=== PATIENT | female | born 1970 | race Two or more races ===

== ENCOUNTER 2018-05-10 08:24 | Emergency (ER) | payer OTHER ==
[2018-05-10 08:44] VITALS: TEMP 98; BMI 37.8
[2018-05-10] MEDS ORDERED: ACETAMINOPHEN 325 MG TABLET (FP) PO ONE (09:34)
--- NOTE | 2018-05-10 09:34 | PDOC ---
History of Present Illness - General Chief Complaint: Pain, Acute Stated Complaint: ABD PAIN Time Seen by Provider: 05/10/18 09:16 History Source: Patient - History of Present Illness Initial Comments: 05/10/18 09:28 47 year old female with a past medical history of asthma, migraines, kidney stones, breast CA, valvular heart dz (not on meds), presents to the hospital for 2 weeks of constant, non-radiating, right upper quadrant abdominal pain. She states that the pain is burning in quality, 10/10 in severity, and starts in the morning and lasts until bedtime, every day. Reports that she eats spicy foods, but is not aware of food exacerbating her symptoms. Reports an associated headache when she has the abdominal pain. Reports that milk and yogurt help alleviate her pain. Denies fevers, chills, nausea, vomiting, diarrhea, chest pain or shortness of breath. Allergies: none Smoking: none Alcohol: none Drugs: none PCP: Dr. Costello Past History - Past Medical History Allergies/Adverse Reactions: Allergies Allergy/AdvReac Type Severity Reaction Status Date / Time No Known Allergies Allergy Verified 05/10/18 08:41 Home Medications: Ambulatory Orders Albuterol Sulfate Inhaler - [Ventolin HFA Inhaler -] 1 - 2 inh PO Q4H PRN Aspirin [[place] Aspirin] 81 mg PO DAILY 01/03/16 Citalopram Hydrobromide [Celexa -] 20 mg PO HS 01/03/16 Citalopram Hydrobromide [Celexa -] 40 mg PO DAILY 01/03/16 Clonazepam [Klonopin] 1 mg PO DAILY 01/03/16 Diphenhydramine [Benadryl Capsule -] 50 mg PO DAILY PRN 01/03/16 EPINEPHrine (EPIPEN JR 0.15MG) [Epipen Jr 0.15MG] 0.15 mg IM ASDIR 01/03/16 Gabapentin 100 mg PO DAILY 01/03/16 Loratadine [Claritin -] 10 mg PO DAILY 01/03/16 Quetiapine Fumarate [Seroquel -] 100 mg PO HS 01/03/16 Topiramate [Topamax] 50 mg PO DAILY 01/03/16 Acetaminophen/Caffeine/Butalb [Fioricet -] 1 tab PO Q6H PRN 05/10/18 Famotidine [Pepcid] 40 mg PO BID #14 tablet 05/10/18 Hydrochlorothiazide [Hctz -] 50 mg PO DAILY 05/10/18 Mag Hydrox/Aluminum Hyd/Simeth [Maalox Advanced Suspension] 355 ml PO Q6H #1 oral.susp 05/10/18 Meclizine HCl [Antivert -] 12.5 mg PO ASDIR PRN 05/10/18 Montelukast Sodium [Singulair] 10 mg PO HS 05/10/18 Omeprazole 10 mg PO DAILY PRN 05/10/18 Simvastatin [Zocor -] 10 mg PO HS 05/10/18 Tamoxifen Citrate 20 mg PO DAILY 05/10/18 Trazodone HCl 50 mg PO HS 05/10/18 Anemia: Yes Asthma: Yes Cancer: No Cardiac Disorders: Yes (VALVE PROBLEM) CVA: No COPD: No CHF: No Dementia: No Diabetes: No GI Disorders: Yes (ULCER) Disorders: No HTN: Yes Hypercholesterolemia: No Liver Disease: No Psychiatric Problems: Yes (ANXIETY) Seizures: Yes ("HAS NOT HAD FOR MANY YRS") Thyroid Disease: No - Surgical History Abdominal Surgery: No Appendectomy: No Cardiac Surgery: No Cholecystectomy: No Lung Surgery: No Neurologic Surgery: No Orthopedic Surgery: Yes (CARPAL TUNNEL - RIGHT) - Suicide/Smoking/Psychosocial Hx Smoking Status: No Smoking History: Never smoked Number of Cigarettes Smoked Daily: 0 Hx Alcohol Use: No Drug/Substance Use Hx: No Substance Use Type: None Hx Substance Use Treatment: No Review of Systems - Review of Systems Constitutional: No: Chills, Fever Respiratory: No: Shortness of Breath, Wheezing Cardiac (ROS): No: Chest Pain, Chest Tightness ABD/GI: Yes: Other (RUQ abdominal pain). No: Abdominal Distended, Diarrhea, Nausea, Vomiting Musculoskeletal: No: Back Pain, Joint Pain, Muscle Pain, Muscle Weakness *Physical Exam - Vital Signs Last Vital Signs Temp Pulse Resp BP Pulse Ox 98 F 81 19 119/77 98 05/10/18 08:41 05/10/18 08:41 05/10/18 08:41 05/10/18 08:41 05/10/18 08:41 - Physical Exam Comments: 05/10/18 09:32 GENERAL: A&Ox3, no acute distress EYES: PERRLA, EOMI ENT: Moist mucus membranes NECK: No JVD LUNGS: CTA, no wheezes HEART: RRR, no murmurs ABDOMEN: Obese, Soft, tender to palpation in the RUQ, guzman sign positive, BS present MUSCULOSKELETAL: No CVA Tenderness EXTREMITIES: 2+ pulses, no edema. NEUROLOGICAL: Cranial nerves II-XII intact. ED Treatment Course - LABORATORY CBC & Chemistry Diagram: 05/10/18 10:11 05/10/18 10:11 - RADIOLOGY Radiology Studies Ordered: Category Date Time Status ABDOMEN US -LIMITED [US] Stat Ultrasound 05/10/18 09:27 Ordered Medical Decision Making - Medical Decision Making 05/10/18 09:33 47 year old female hx of asthma, migraines, breast CA, kidney stones presented to hospital for 2 weeks of RUQ abdominal pain DDx: cholelithiasis, choledocholithiasis, cholecystitis, gastritis, pancreatitis gastroenteritis, gastric/duodenal ulcer Plan: -CBC, CMP, UA, EKG, Lipase, US abdomen with gallbladder focus -will give tylenol 650 for pain -pepcid -maalox 05/10/18 12:50 -CT abd/pelvis positive for bilateral non-obstructive renal stones without hydro , hyperdensity of gallbladder sludge but no stones, uterine fibroid vs mass -will get transvaginal US 05/10/18 16:51 -TVUS only significant for simple cysts, pt will follow with OB *DC/Admit/Observation/Transfer Diagnosis at time of Disposition: Abdominal pain - Discharge Dispostion Disposition: HOME Condition at time of disposition: Stable Decision to Admit order: No - Prescriptions Prescriptions: Famotidine [Pepcid] 40 mg PO BID #14 tablet Mag Hydrox/Aluminum Hyd/Simeth [Maalox Advanced Suspension] 355 ml PO Q6H #1 oral.susp - Referrals Referrals: Rufino Costello MD [Primary Care Provider] - Rashaun Lozano DO [Staff Physician] - 28 days - Patient Instructions Additional Instructions: You were seen in the hospital for abdominal pain. 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 Lozano within 1 month of discharge Please make an appointment with your primary care physician within 1 week of discharge If these symptoms persist or get worse, or you develop fevers, chills chest pain, or difficulty breathing, please return to the emergency room immediately - Post Discharge Activity
[2018-05-10] MEDS ORDERED: MAG HYDROX/AL HYDROX/SIMETH 30 ML UNIT-DOSE CUP PO ONE (09:51)
[2018-05-10] MEDS ORDERED: FAMOTIDINE 20 MG/50 ML IVPB 20 MG/50 ML MG IVPB ONE ×2 (09:51→10:34)
--- NOTE | 2018-05-10 10:20 | PDOC ---
Attending Attestation - ED Attending Attestation I have performed the following: I have examined & evaluated the patient, The case was reviewed & discussed with the resident, I agree w/resident's findings & plan - Medical Decision Making 05/10/18 10:20 I, Dr. Dee Lara MD, attest that this document has been prepared under my direction and personally reviewed by me in its entirety. I further attest, that it accurately reflects all work, treatment, procedures and medical decision -making performed by me. 05/10/18 10:29 Differential diagnosis includes gastritis, duodenal ulcer or duodenitis, renal colic cholelithiasis or cholecystitis. Plan bedside ultrasound to evaluate the gallbladder and bilateral renal ultrasound Focused ED ultrasound was performed gallbladder was scanned into plans with the phased array probe no wall thickening no wall edema no pericholecystic fluid. Negative sonographic Roldan's. No gallstones visualized CBD was normal impression normal gallbladder Bilateral kidneys were scanned into planes with the phased array probe. Small consultation noted in the right kidney no hydronephrosis visible. Bladder was nondistended there is an incidental 2.4 cm right adnexal cyst patient was informed of this finding impression normal renal ultrasound incidental right adnexal cyst recommend outpatient transvaginal ultrasound follow-up We will perform CT abdomen and pelvis to evaluate for occult ureteral stone <Dee Lara - Last Filed: 05/10/18 10:36> - Resident Resident Name: Haresh Lugo - HPI HPI: 05/10/18 10:21 The patient is a 47 year old female, with a significant past medical history of hypertension, asthma, kidney stones and anemia, who presents to the emergency department with abdominal pain for approximately 2 weeks. The patient reports her pain is localized to the RUQ pain and is burning/nonradiating in nature. Patient reports her pain is a constant 10/10 throughout the day, but it does let her sleep at night. Patient reports her pain is alleviated with milk and yogurt. She denies any associated nausea, vomiting, diarrhea, or constipation. She denies any flank pain, dysuria, hematuria, frequency, or urgency. She denies any fever, chills, headache, or dizziness. Patient reports the only abdominal pain, she has had in the past is related to her kidney stones, but states this pain is not similar to her kidney stone pain. She denies any heavy lifting, recent travel, or sick contacts. Allergies: NKDA Past Surgical History: None reported Social History: Non smoker. No ETOH or recreational drug use. - Physicial Exam PE: 05/10/18 10:21 GENERAL: Awake, alert, and fully oriented, in no acute distress HEAD: No signs of trauma EYES: PERRLA, EOMI, sclera anicteric, conjunctiva clear ENT: Auricles normal inspection, hearing grossly normal, nares patent. Moist mucosa NECK: Normal ROM, supple, no lymphadenopathy, JVD, or masses LUNGS: Breath sounds equal, clear to auscultation bilaterally. No wheezes, and no crackles HEART: Regular rate and rhythm, normal S1 and S2, no murmurs, rubs or gallops ABDOMEN: +RUQ tenderness. Soft, normoactive bowel sounds. No guarding, no rebound. No masses EXTREMITIES: Normal range of motion, no edema. No clubbing or cyanosis. No cords, erythema, or tenderness. DP/PT pulses 2+ and symmetric. Warm and well perfused. NEUROLOGICAL: Moves all extremities. Normal speech, normal gait SKIN: Warm, Dry, normal turgor, no rashes or lesions noted. - Medical Decision Making 05/10/18 10:21 Documentation prepared by Mirtha Velasquez, acting as medical staff coordinator for Dee Lara MD. <Mirtha Velasquez - Last Filed: 05/10/18 17:21> Heart Score/ECG Review #1 General ECG Interpretation: Sinus Rhythm, Normal Rate (61), Normal Intervals, No acute ischemic changes Compared to previous ECG there are: No significant change (TWI III, AVF) <Dee Lara - Last Filed: 05/10/18 10:36> ED Treatment Course - LABORATORY CBC & Chemistry Diagram: 05/10/18 10:11 05/10/18 10:11 - ADDITIONAL ORDERS Additional order review: Laboratory Results 05/10/18 05/10/18 10:11 10:00 Sodium 140 Potassium 4.0 Chloride 107 Carbon Dioxide 27 Anion Gap 6 L BUN 15 Creatinine 0.6 Creat Clearance w eGFR > 60 Random Glucose 109 H Calcium 9.2 Total Bilirubin 0.2 D AST 27 ALT 40 Alkaline Phosphatase 66 Total Protein 7.1 Albumin 3.6 Lipase 161 Urine Color Yellow Urine Appearance Cloudy Urine pH 5.0 D Ur Specific [place] 1.024 Urine Protein Negative Urine Glucose (UA) Negative Urine Ketones Negative Urine Blood Negative Urine Nitrite Negative Urine Bilirubin Negative Urine Urobilinogen Negative Ur Leukocyte Esterase Negative Urine HCG, Qual Negative 05/10/18 10:11 RBC 4.27 D MCV 92.7 MCHC 33.1 RDW 13.9 D MPV 8.6 D Neutrophils % 50.6 Lymphocytes % 40.1 H D Monocytes % 7.0 Eosinophils % 1.8 Basophils % 0.5 - RADIOLOGY Radiograph Interpretation: 05/10/18 17:18 EXAM: CT Abdomen and Pelvis INTERPRETED BY: Dr. Villegas REVIEWED BY: Dr. Lara IMPRESSION: Bilateral small renal calculi without hydronephrosis or definitive ureteral calculi. Possible hyperdensity of bile without calcified stones seen. Correlate with ultrasound. Appendix not seen but no inflammatory changes noted in the right lower quadrant. Hepatomegaly with significant lipomatous infiltration. Enlarged uterus and cervix with possible right adnexal mass versus serosal myoma. Correlate with pelvic ultrasound. Other findings as above. Clinical correlation advised. EXAM: Transvaginal US INTERPRETED BY: Dr. Forbes REVIEWED BY: Dr. Lara IMPRESSION: There is a small amount of fluid within the endometrial cavity. Poor visualization of the endometrial wall without gross thickening. There are couple of right ovarian simple cysts with the largest measuring 2.7 cm. Normal vascular flow, arterial and venous. A couple of left ovarian simple cysts/ dominant follicles with the largest measuring 1.8 cm. No arterial flow could be detected. However, venous flow was detected. Correlate clinically 2 determine further evaluation and follow-up There is no free fluid in the cul-de-sac - Medications Given in the ED: ED Medications Discontinued Medications Generic Name Dose Route Start Last Admin Trade Name Freq PRN Reason Stop Dose Admin Acetaminophen 650 mg 05/10/18 09:34 05/10/18 10:40 Tylenol - PO 05/10/18 09:35 650 mg ONCE ONE Administration Al Hydroxide/Mg Hydroxide 30 ml 05/10/18 09:51 05/10/18 10:40 Mylanta Oral Suspension - PO 05/10/18 09:52 30 ml ONCE ONE Administration Famotidine/Sodium Chloride 20 mg in 50 mls @ 100 mls/hr 05/10/18 09:51 10:40 Pepcid 20 Mg Premixed Ivpb - IVPB 05/10/18 10:20 100 mls/hr ONCE ONE Administration <Mirtha Velasquez - Last Filed: 05/10/18 17:21>
[2018-05-10 10:21] LABS: BASO % 0.5 % (0-2.0); EOS % 1.8 % (0-4.5); HEMATOCRIT 39.6 % (32.4-45.2); HEMOGLOBIN 13.1 GM/dL (10.7-15.3); LYMPH % 40.1 % (8-40); MCH 30.7 pg (25.7-33.7); MCHC 33.1 g/dl (32.0-36.0); MEAN CELL VOLUME 92.7 fl (80-96); MEAN PLT VOLUME 8.6 fl (7.5-11.1); NEUT % 50.6 % (42.8-82.8); PLATELET COUNT 214 K/MM3 (134-434); RBC 4.27 M/mm3 (3.60-5.2); RDW 13.9 % (11.6-15.6); WHITE BLOOD COUNT 6.7 K/mm3 (4.0-10.0)
[2018-05-10 10:31] LABS: HCG,QUALITATIVE URINE NEGATIVE
[2018-05-10] MEDS ORDERED: ACETAMINOPHEN 325 MG TABLET (FP) ONE (10:33)
[2018-05-10] MEDS ORDERED: MAG HYDROX/AL HYDROX/SIMETH 30 ML UNIT-DOSE CUP ONE (10:33)
[2018-05-10 10:47] LABS: ALBUMIN 3.6 g/dl (3.4-5.0); ALK PHOS 66 U/L (45-117); ANION GAP 6 (8-16); BILIRUBIN,TOTAL 0.2 mg/dL (0.2-1.0); CALCIUM 9.2 mg/dL (8.5-10.1); CHLORIDE 107 mmol/L (98-107); CO2 27 mmol/L (21-32); CREATININE 0.6 mg/dL (0.55-1.02); GLUCOSE,RANDOM 109 mg/dL (74-106); LIPASE 161 U/L (73-393); SGOT/AST 27 U/L (15-37); SGPT/ALT 40 U/L (12-78); SODIUM 140 mmol/L (136-145); TOT PROT 7.1 g/dl (6.4-8.2)
[2018-05-10 10:57] LABS: BLOOD UREA NITROGEN 15 mg/dL (7-18)
[2018-05-10 11:10] LABS: URINE APPEARANCE CLOUDY; URINE BILIRUBIN NEGATIVE (<2.0 mg/dL); URINE COLOR YELLOW; URINE GLUCOSE (UA) NEGATIVE (NEGATIVE); URINE KETONE NEGATIVE (NEGATIVE); URINE LEUK ESTERASE NEGATIVE (NEGATIVE); URINE NITRITE NEGATIVE (NEGATIVE); URINE PROTEIN NEGATIVE (NEGATIVE); URINE UROBILINOGEN NEGATIVE mg/dL (0.2-1.0)
--- NOTE | 2018-05-10 13:50 | EKG ---
Test Reason : Blood Pressure : / mmHG Vent. Rate : 061 BPM Atrial Rate : 061 BPM P-R Int : 136 ms QRS Dur : 098 ms QT Int : 438 ms P-R-T Axes : 037 -16 -12 degrees QTc Int : 440 ms NORMAL SINUS RHYTHM NONSPECIFIC T WAVE ABNORMALITY ABNORMAL ECG WHEN COMPARED WITH ECG OF 23-APR-2000 20:42, NONSPECIFIC T WAVE ABNORMALITY NOW EVIDENT IN ANTEROLATERAL LEADS Confirmed by MUSA WORTHINGTON MD ([id number]) on 05/10/2018 1:49:40 PM Referred By: Confirmed By:MUSA WORTHINGTON MD
[2018-05-10 17:22] VITALS: BP 121/70; PULSE 55
== END 2018-05-10 17:22 | disposition home or self-care (01) ==
LOC: JER 08:24
PROC: 3E033GC Introduction of Other Therapeutic Substance into Peripheral Vein, Percutaneous Approach (ICD-10-PCS; principal; 2018-05-10)
DX: N20.0 Calculus of kidney (principal); Z87.442 Personal history of urinary calculi; J45.909 Unspecified asthma, uncomplicated; Z85.3 Personal history of malignant neoplasm of breast; Z86.69 Personal history of other diseases of the nervous system and sense organs; F41.9 Anxiety disorder, unspecified; Z86.79 Personal history of other diseases of the circulatory system
CPT/HCPCS: 36415; 74176-TC; 76705-TC; 76830-TC; 80053; 81003; 83690; 84703; 85025; 93005; 93010; 96365; 99283-25

== ENCOUNTER 2019-01-09 17:21 | Emergency (ER) | payer OTHER ==
[2019-01-09 17:36] VITALS: BP 130/72; PULSE 70; TEMP 98.5; BMI 39.4
--- NOTE | 2019-01-09 18:01 | PDOC ---
History of Present Illness - General Chief Complaint: Wound Stated Complaint: CYST Time Seen by Provider: 01/09/19 17:38 History Source: Patient Exam Limitations: No Limitations - History of Present Illness Initial Comments: 01/09/19 17:56 HISTORY OF PRESENT ILLNESS: This is a 48-year-old woman presents emergency Department with painful "cyst" to her mid back which started approximately 2 days ago. Patient denies any fevers, chills or drainage from the site. Patient reports increased pain with direct pressure to the lesion. Patient has not been wearing her bra as it provides direct pressure to this lesion. Patient reports it is similar growth approximately 2 months ago for which she was treated with antibiotics. Patient has a similar lesion smaller in size on the left cheek. No recent travel or sick contacts. PAST MEDICAL HISTORY: Denies past medical history SURGICAL HISTORY: Denies ALLERGIES: No known drug allergies REVIEW OF SYSTEMS General/Constitutional: Denies fever or chills. Denies weakness, weight change. HEENT: Denies change in vision. Denies ear pain or discharge. Denies sore throat. Cardiovascular: Denies chest pain or shortness of breath. Respiratory: Denies cough, wheezing, or hemoptysis. Gastrointestinal: Denies nausea, vomiting, diarrhea or constipation. Denies rectal bleeding. Genitourinary: Denies dysuria, frequency, or change in urination. Musculoskeletal: Denies joint or muscle swelling or pain. Denies neck or back pain. Skin and breasts: see HPI Neurologic: Denies headache, vertigo, loss of consciousness, or loss of sensation. Psychiatric: Denies depression or anxiety. Endocrine: Denies increased thirst. Denies abnormal weight change. Hematologic/Lymphatic: Denies anemia, easy bleeding, or history of blood clots. Allergic/Immunologic: Denies hives or skin allergy. Denies latex allergy. PHYSICAL EXAM General Appearance: Well-appearing, appropriately dressed. No apparent distress , no intoxication. HEENT: EOMI, PERRLA, normal ENT inspection, normal voice, TMs normal, pharynx normal. No conjunctival pallor. No photophobia, scleral icterus. Neck: Supple. Trachea midline. No tenderness, rigidity, carotid bruit, stridor , lymphadenopathy, or thyromegaly. Respiratory/Chest: Lungs CTAB. No shortness of breath, chest tenderness, respiratory distress, accessory muscle use. No crackles, rales, rhonchi, stridor , wheezing, dullness Cardiovascular: RRR. S1, S2. No JVD, murmur, bradycardia, tachycardia. Vascular Pulses: Dorsalis-Pedis (R): 2+, Dorsalis-Pedis (L): 2+ Gastrointestinal/Abdominal: Normal bowel sounds. Abdomen soft, non-distended. No tenderness or rebound tenderness. No organomegaly, pulsatile mass, guarding, hernia, hepatomegaly, splenomegaly. Lymphatic: No adenopathy, tenderness. Musculoskeletal/Extremities: Normal inspection. FROM of all extremities, normal capillary refill. Pelvis Stable. No CVA tenderness. No tenderness to extremities, pedal edema, swelling, erythema or deformity. Integumentary: 6 cm x 3 cm ovoid area of induration present to the thoracic spine extending from T8-T10. No palpable fluctuance present. Unable to express from lesion. 0.5 cm circular lesion present to the left zygomatic. No fluctuance present for this lesion. Unable to express any discharge or drainage from this wound. 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 Fully oriented, alert. Appropriate mood/affect. Motor strength 5/5. No appreciable EOM palsy, facial droop or sensory deficit. Past History - Past Medical History Allergies/Adverse Reactions: Allergies Allergy/AdvReac Type Severity Reaction Status Date / Time No Known Allergies Allergy Verified 01/09/19 17:31 Home Medications: Ambulatory Orders Albuterol Sulfate Inhaler - [Ventolin HFA Inhaler -] 1 - 2 inh PO Q4H PRN Aspirin [[place] Aspirin] 81 mg PO DAILY 01/03/16 Clonazepam [Klonopin] 2 mg PO DAILY 01/03/16 EPINEPHrine (EPIPEN JR 0.15MG) [Epipen Jr 0.15MG] 0.15 mg IM ASDIR 01/03/16 Gabapentin 100 mg PO DAILY 01/03/16 Loratadine [Claritin -] 10 mg PO DAILY 01/03/16 Quetiapine Fumarate [Seroquel -] 100 mg PO HS 01/03/16 Topiramate [Topamax] 50 mg PO DAILY 01/03/16 Acetaminophen/Caffeine/Butalb [Fioricet -] 1 tab PO Q6H PRN 05/10/18 Famotidine [Pepcid] 40 mg PO BID #14 tablet 05/10/18 Hydrochlorothiazide [Hctz -] 50 mg PO DAILY 05/10/18 Meclizine HCl [Antivert -] 12.5 mg PO ASDIR PRN 05/10/18 Montelukast Sodium [Singulair] 10 mg PO HS 05/10/18 Simvastatin [Zocor -] 10 mg PO HS 05/10/18 Tamoxifen Citrate 20 mg PO DAILY 05/10/18 traZODone HCL [Trazodone HCl] 50 mg PO HS 05/10/18 Mupirocin Cream [Bactroban 2% Cream -] 1 applic TP BID #1 tube 01/09/19 Sulfamethoxazole/Trimethoprim [Bactrim Ds -] 1 tab PO BID #14 tablet 01/09/19 Anemia: Yes Asthma: Yes Cancer: No Cardiac Disorders: Yes (VALVE PROBLEM) CVA: No COPD: No CHF: No Dementia: No Diabetes: No GI Disorders: Yes (ULCER) Disorders: No HTN: Yes Hypercholesterolemia: No Liver Disease: No Psychiatric Problems: Yes (ANXIETY) Seizures: Yes ("HAS NOT HAD FOR MANY YRS") Thyroid Disease: No - Surgical History Abdominal Surgery: No Appendectomy: No Cardiac Surgery: No Cholecystectomy: No Lung Surgery: No Neurologic Surgery: No Orthopedic Surgery: Yes (CARPAL TUNNEL - RIGHT) - Suicide/Smoking/Psychosocial Hx Smoking Status: No Smoking History: Unknown if ever smoked Have you smoked in the past 12 months: No Number of Cigarettes Smoked Daily: 0 Hx Alcohol Use: No Drug/Substance Use Hx: No Substance Use Type: None Hx Substance Use Treatment: No *Physical Exam - Vital Signs Last Vital Signs Temp Pulse Resp BP Pulse Ox 98.5 F 70 18 130/72 99 01/09/19 17:35 01/09/19 17:35 01/09/19 17:35 01/09/19 17:35 01/09/19 17:35 Moderate Sedation - Procedure Monitoring Vital Signs: Procedure Monitoring Vital Signs Temperature 98.5 F 01/09/19 17:35 Pulse Rate 70 01/09/19 17:35 Respiratory Rate 18 01/09/19 17:35 Blood Pressure 130/72 01/09/19 17:35 O2 Sat by Pulse Oximetry (%) 99 01/09/19 17:35 Medical Decision Making - Medical Decision Making 01/09/19 18:01 A/P: 48-year-old woman with nonfluctuant cyst to back and left cheek Discharge home with a prescription for Bactrim and mupirocin. I'll give the patient a recommendation for dermatology for continued evaluation and potential removal. *DC/Admit/Observation/Transfer Diagnosis at time of Disposition: Abscess - Discharge Dispostion Disposition: HOME Condition at time of disposition: Stable Decision to Admit order: No - Prescriptions Prescriptions: Mupirocin Cream [Bactroban 2% Cream -] 1 applic TP BID #1 tube Sulfamethoxazole/Trimethoprim [Bactrim Ds -] 1 tab PO BID #14 tablet - Referrals Referrals: Rufino Costello MD [Primary Care Provider] - Alexander White [Non Staff, Medical] - Elyssa Langston MD [Staff Physician] - - Patient Instructions Additional Instructions: Take Bactrim DS one tablet twice a day for the next 7 days Finish all antibiotics even if you feel better. Apply warm compresses to your ear as needed. Return to emergency department for any worsening pain, drainage, hearing loss, or any other concerns. Thank you very much for choosing us to provide your emergent health care needs.s - Post Discharge Activity
== END 2019-01-09 18:05 | disposition home or self-care (01) ==
LOC: JERFT 17:21
DX: L02.212 Cutaneous abscess of back [any part, except buttock and flank] (principal); I10 Essential (primary) hypertension; D64.9 Anemia, unspecified; J45.909 Unspecified asthma, uncomplicated; F41.9 Anxiety disorder, unspecified; Z87.09 Personal history of other diseases of the respiratory system
CPT/HCPCS: 99281-25

== ENCOUNTER 2019-06-19 23:32 | Emergency (ER) | payer OTHER | END 2019-06-20 01:50 | disposition home or self-care (01) | LOC: JER 23:32 | PROC: 3E0233Z Introduction of Anti-inflammatory into Muscle, Percutaneous Approach (ICD-10-PCS; principal; 2019-06-19) | DX: M25.561 Pain in right knee (principal); I10 Essential (primary) hypertension; E78.5 Hyperlipidemia, unspecified; E11.9 Type 2 diabetes mellitus without complications; F41.9 Anxiety disorder, unspecified; J45.909 Unspecified asthma, uncomplicated; Z79.82 Long term (current) use of aspirin ==

== ENCOUNTER 2020-01-21 22:00 | Emergency (ER) | payer OTHER ==
[2020-01-21 22:06] VITALS: BP 144/86; PULSE 91; TEMP 97.5; BMI 37.8
--- NOTE | 2020-01-21 22:12 | PDOC ---
History of Present Illness - General Chief Complaint: Pain Stated Complaint: ABD/PAIN Time Seen by Provider: 01/21/20 22:11 History Source: Patient - History of Present Illness Initial Comments: 01/21/20 22:53 Ms. Alan Sexton is a 49 y/o woman w/hx gastric ulcer, GERD, recurrent kidney stones p/w three days of acute onset epigastric pain, nausea, vomiting, diarrhea. She reports that her symptoms acutely worsened today. She reports 3x nbnb vomiting today as well as 3x watery diarrhea. She reports 8/10 epigastric pain, non-radiating, described as a burning. She denies any chest pain, flank pain, shortness of breath, fevers, chills. She reports similar prior symptoms when her gastric ulcer was discovered. She initiated omeprazole at that time but has not been taking it recently after her prescription ran out as she has not seen her PCP. She has been unable to tolerate po today, solids or liquids. Past History - Past Medical History Allergies/Adverse Reactions: Allergies Allergy/AdvReac Type Severity Reaction Status Date / Time No Known Allergies Allergy Verified 01/21/20 22:06 Home Medications: Ambulatory Orders Albuterol Sulfate Inhaler - [Ventolin HFA Inhaler -] 1 - 2 inh PO Q4H PRN Aspirin [[place] Aspirin] 81 mg PO DAILY 01/03/16 Clonazepam [Klonopin] 2 mg PO DAILY 01/03/16 EPINEPHrine (EPIPEN JR 0.15MG) [Epipen Jr 0.15MG] 0.15 mg IM ASDIR 01/03/16 Gabapentin 100 mg PO DAILY 01/03/16 Loratadine [Claritin -] 10 mg PO DAILY 01/03/16 Quetiapine Fumarate [Seroquel -] 100 mg PO HS 01/03/16 Topiramate [Topamax] 50 mg PO DAILY 01/03/16 Acetaminophen/Caffeine/Butalb [Fioricet -] 1 tab PO Q6H PRN 05/10/18 Famotidine [Pepcid] 40 mg PO BID #14 tablet 05/10/18 Hydrochlorothiazide [Hctz -] 50 mg PO DAILY 05/10/18 Meclizine HCl [Antivert -] 12.5 mg PO ASDIR PRN 05/10/18 Montelukast Sodium [Singulair] 10 mg PO HS 05/10/18 Simvastatin [Zocor -] 10 mg PO HS 05/10/18 Tamoxifen Citrate 20 mg PO DAILY 05/10/18 traZODone HCL [Trazodone HCl] 50 mg PO HS 05/10/18 Mupirocin Cream [Bactroban 2% Cream -] 1 applic TP BID #1 tube 01/09/19 Sulfamethoxazole/Trimethoprim [Bactrim Ds -] 1 tab PO BID #14 tablet 01/09/19 Omeprazole 20 mg PO DAILY #30 tablet. 01/21/20 Anemia: Yes Asthma: Yes Cancer: No Cardiac Disorders: Yes (VALVE PROBLEM) CVA: No COPD: No CHF: No Dementia: No Diabetes: No GI Disorders: Yes (ULCER) Disorders: No HTN: Yes Hypercholesterolemia: No Liver Disease: No Psychiatric Problems: Yes (ANXIETY) Seizures: Yes ("HAS NOT HAD FOR MANY YRS") Thyroid Disease: No - Surgical History Abdominal Surgery: No Appendectomy: No Cardiac Surgery: No Cholecystectomy: No Lung Surgery: No Neurologic Surgery: No Orthopedic Surgery: Yes (CARPAL TUNNEL - RIGHT) - Psycho Social/Smoking Cessation Hx Smoking Status: No Smoking History: Never smoked Have you smoked in the past 12 months: No Number of Cigarettes Smoked Daily: 0 Information on smoking cessation initiated: No Hx Alcohol Use: No Drug/Substance Use Hx: No Substance Use Type: None Hx Substance Use Treatment: No Review of Systems - Review of Systems Able to Perform ROS?: Yes Comments:: 01/21/20 23:18 ROS: GENERAL/CONSTITUTIONAL: No fever or chills. No weakness. HEAD, EYES, EARS, NOSE AND THROAT: No change in vision. No ear pain or discharge. No sore throat. CARDIOVASCULAR: No chest pain or shortness of breath RESPIRATORY: No cough, wheezing, or hemoptysis. GASTROINTESTINAL: Epigastric pain. Nausea, vomiting, diarrhea. No constipation. GENITOURINARY: No dysuria, frequency, or change in urination. MUSCULOSKELETAL: No joint or muscle swelling or pain. No neck or back pain. SKIN: No rash NEUROLOGIC: No headache, vertigo, loss of consciousness, or change in strength/ sensation. ENDOCRINE: No increased thirst. No abnormal weight change HEMATOLOGIC/LYMPHATIC: No anemia, easy bleeding, or history of blood clots. ALLERGIC/IMMUNOLOGIC: No hives or skin allergy. *Physical Exam - Vital Signs Last Vital Signs Temp Pulse Resp BP Pulse Ox 97.5 F L 91 H 21 H 144/86 100 01/21/20 22:03 01/21/20 22:03 01/21/20 22:03 01/21/20 22:03 01/21/20 22:03 - Physical Exam 01/21/20 23:20 PE: GENERAL: Awake, alert, and fully oriented, groaning in pain clutching abdomen. HEAD: No signs of trauma, normocephalic, atraumatic EYES: PERRLA, EOMI, sclera anicteric, conjunctiva clear ENT: Auricles normal inspection, hearing grossly normal, nares patent, oropharynx clear without exudates. Moist mucosa NECK: Normal ROM, supple, no lymphadenopathy, JVD, or masses LUNGS: No distress, speaks full sentences, clear to auscultation bilaterally HEART: Regular rate and rhythm, normal S1 and S2, no murmurs, rubs or gallops, peripheral pulses normal and equal bilaterally. ABDOMEN: Epigastric tederness. Soft, normoactive bowel sounds. No guarding, no rebound. No masses EXTREMITIES : Normal inspection, Normal range of motion, no edema. No clubbing or cyanosis NEUROLOGICAL: Cranial nerves II through XII grossly intact. Normal speech, normal gait, no focal sensorimotor deficits SKIN: Warm, Dry, normal turgor, no rashes or lesions noted Heart Score/ECG Review - History History: Slightly suspicious - Electrocardiogram EKG: Normal - Age Age: 45-65 - Risk Factors Risk Factors Heart Score: Yes Positive family hx of cardiac disease, Yes Hx Obesity Based on the list above the patient has:: 1-2 risk factors - Troponin Troponin: </= normal limit - Score Heart Score - Total: 2 ED Treatment Course - LABORATORY CBC & Chemistry Diagram: 01/21/20 22:50 01/21/20 22:50 Medical Decision Making - Medical Decision Making 01/21/20 23:20 49F w/hx GERD, gastric ulcer, recurrent kidney stones p/w three days of worsening epigastric pain, n/v/d, no longer on PPI. Ddx includes worsening GERD vs pain from known ulcer. Pancreatitis also possible given pain with n/v/d. Viral GI infection also possible. Plan: CBC CMP Lipase Cardiac profile EKG CXR Duane Gaston Dispo: Pending 01/21/20 23:47 EKG - NSR, normal axis, QTc 453, QRS - 104 --- CBC - wnl CMP - wnl Lipase - negative Troponin - negative --- On reassessment, she reports that her symptoms have resolved entirely. Abdomen is soft, nontender. Plan for discharge with close GI, PCP follow up. Discharge - Discharge Information Problems reviewed: Yes Clinical Impression/Diagnosis: GERD (gastroesophageal reflux disease) Qualifiers: Esophagitis presence: without esophagitis Qualified Code(s): K21.9 - Gastro- esophageal reflux disease without esophagitis Condition: Stable Disposition: HOME - Admission No - Additional Discharge Information Prescriptions: Omeprazole 20 mg PO DAILY #30 tablet.dr - Follow up/Referral Referrals: ON STAFF,NOT [Primary Care Provider] - Rashaun Lozano DO [Staff Physician] - - Patient Discharge Instructions Patient Printed Discharge Instructions: DI for Gastroesophageal Reflux Disease (GERD) Additional Instructions: You were seen in the ER for abdominal pain. Your bloodwork was normal. Your symptoms improved with medication. Please follow up with gastroenterology ( intestine doctors) as soon as possible, in the next 7 days. We are giving you a referral - please call to make the appointment as soon as possible. Return to the ER if you develop chest pain, trouble breathing, intractable vomiting or intractable pain. - Post Discharge Activity
[2020-01-21] MEDS ORDERED: MAG HYDROX/AL HYDROX/SIMETH 30 ML UNIT-DOSE CUP PO ONE (22:22)
[2020-01-21] MEDS ORDERED: METOCLOPRAMIDE HCL INJECTION 10 MG/2 ML VIAL IVPUSH ONE (22:22)
[2020-01-21] MEDS ORDERED: FAMOTIDINE 20 MG/50 ML IVPB 20 MG/50 ML MG IVPB ONE ×2 (22:22→22:30)
[2020-01-21] MEDS ORDERED: METOCLOPRAMIDE HCL INJECTION 10 MG/2 ML VIAL ONE (22:29)
[2020-01-21] MEDS ORDERED: MAG HYDROX/AL HYDROX/SIMETH 30 ML UNIT-DOSE CUP ONE (22:30)
[2020-01-21 23:01] LABS: BASO % 0.5 % (0-2.0); EOS % 2.1 % (0-4.5); HEMATOCRIT 40.6 % (32.4-45.2); HEMOGLOBIN 13.6 GM/dL (10.7-15.3); LYMPH % 25.3 % (8-40); MCH 31.4 pg (25.7-33.7); MCHC 33.5 g/dl (32.0-36.0); MEAN CELL VOLUME 93.9 fl (80-96); MEAN PLT VOLUME 8.1 fl (7.5-11.1); MONO % 5.9 % (3.8-10.2); NEUT % 66.2 % (42.8-82.8); PLATELET COUNT 233 K/MM3 (134-434); RBC 4.32 M/mm3 (3.60-5.2); RDW 14.2 % (11.6-15.6); WHITE BLOOD COUNT 11.9 K/mm3 (4.0-10.0)
[2020-01-21 23:25] LABS: ALBUMIN 3.7 g/dl (3.4-5.0); ALK PHOS 77 U/L (45-117); ANION GAP 6 MMOL/L (8-16); BILIRUBIN,TOTAL 0.3 mg/dL (0.2-1); BLOOD UREA NITROGEN 14.7 mg/dL (7-18); CHLORIDE 107 mmol/L (98-107); CO2 28 mmol/L (21-32); CREATININE 0.8 mg/dL (0.55-1.3); GLUCOSE,RANDOM 119 mg/dL (74-106); POTASSIUM 4.1 mmol/L (3.5-5.1); SGOT/AST 44 U/L (15-37); SGPT/ALT 50 U/L (13-61); SODIUM 141 mmol/L (136-145); TOT PROT 7.6 g/dl (6.4-8.2)
--- NOTE | 2020-01-21 23:57 | PDOC ---
Documentation entered by Ramu Adamson SCRIBE, acting as scribe for Heidi Eric DO. Heidi Eric DO: This documentation has been prepared by the [facility] Xhesika, SCRIBE, under my direction and personally reviewed by me in its entirety. I confirm that the documentation accurately reflects all work, treatment, procedures, and medical decision making performed by me. Attending Attestation - Resident Resident Name: Vitaly Ferraro - ED Attending Attestation I have performed the following: I have examined & evaluated the patient, The case was reviewed & discussed with the resident, I agree w/resident's findings & plan - HPI HPI: 01/21/20 22:55 The patient is a 49 year old female with a past medical history of peptic ulcer disease who presents to the ED for burning epigastric pain radiating to her LUQ and umbilical region. Pt is non compliant with her medications. Patient denies chest pain, SOB, headache, lightheadedness. Denies fever, chills. Denies chest pain, shortness of breath. Denies nausea, vomiting, diarrhea, abdominal pain. Allergies: NKDA - Physicial Exam PE: 01/21/20 22:56 Agree with resident exam. - Medical Decision Making 01/21/20 23:[id number] female with epigastric burning EKG unremarkable Labs unremarkable Chest x-ray shows no free air Patient completely asymptomatic stating she would like to go home after antacids Will DC with recommended follow-up outpatient with gastroenterology.
--- NOTE | 2020-01-22 12:04 | EKG ---
Test Reason : Blood Pressure : / mmHG Vent. Rate : 070 BPM Atrial Rate : 070 BPM P-R Int : 130 ms QRS Dur : 104 ms QT Int : 420 ms P-R-T Axes : 040 -17 017 degrees QTc Int : 453 ms NORMAL SINUS RHYTHM INCOMPLETE RIGHT BUNDLE BRANCH BLOCK WHEN COMPARED WITH ECG OF 10-MAY-2018 10:26, NONSPECIFIC T WAVE ABNORMALITY NO LONGER EVIDENT IN ANTEROLATERAL LEADS Confirmed by LOIS SNOW MD ([id number]) on 01/22/2020 12:04:10 PM Referred By: Confirmed By:LOIS SNOW MD
== END 2020-01-22 00:07 | disposition home or self-care (01) ==
LOC: SUPCPDRO 22:00 → JER 22:00
PROC: 3E033GC Introduction of Other Therapeutic Substance into Peripheral Vein, Percutaneous Approach (ICD-10-PCS; principal; 2020-01-21)
PROC: 3E033GC Introduction of Other Therapeutic Substance into Peripheral Vein, Percutaneous Approach (ICD-10-PCS; 2020-01-21)
DX: K21.9 Gastro-esophageal reflux disease without esophagitis (principal); I10 Essential (primary) hypertension; F41.9 Anxiety disorder, unspecified; J45.909 Unspecified asthma, uncomplicated; Z86.2 Personal history of diseases of the blood and blood-forming organs and certain disorders involving the immune mechanism; Z87.19 Personal history of other diseases of the digestive system; Z86.69 Personal history of other diseases of the nervous system and sense organs
CPT/HCPCS: 36415; 71045-TC-FY; 80053; 82550; 83690; 84484; 84703; 85025; 93005; 93010; 96365; 96375; 99285-25

== ENCOUNTER 2020-01-27 01:23 | Emergency (ER) | payer OTHER ==
[2020-01-27 01:28] VITALS: BMI 39.6
--- NOTE | 2020-01-27 01:46 | PDOC ---
History of Present Illness - General Chief Complaint: Vomiting/Diarrhea Stated Complaint: VOMITING - History of Present Illness Initial Comments: The pt is a 49F w/ a history of DM, HTN, PUD, GERD, Breast cancer (Tamoxifen), recurrent nephrolithiasis who presents for evaluation of epigastric pain with associated nausea and NBNB emesis. She reports persistent epigastric that initially improved but then worsened today. She reports NBNB emesis x3. The ab dominal pain is epigastric, burning, constant, non-radiating, exacerbated by food/touch, and not alleviated by anything she can identify. Denies fevers/chills, BROWN, chest pain, trouble breathing, blood in her vomit or stool, dysuria, hematuria, or back pain. 01/27/20 01:46 Past History - Past Medical History Allergies/Adverse Reactions: Allergies Allergy/AdvReac Type Severity Reaction Status Date / Time No Known Allergies Allergy Verified 01/27/20 01:28 Home Medications: Ambulatory Orders Albuterol Sulfate Inhaler - [Ventolin HFA Inhaler -] 1 - 2 inh PO Q4H PRN 01/03/16 Aspirin [[place] Aspirin] 81 mg PO DAILY 01/03/16 Clonazepam [Klonopin] 2 mg PO DAILY 01/03/16 EPINEPHrine (EPIPEN JR 0.15MG) [Epipen Jr 0.15MG] 0.15 mg IM ASDIR 01/03/16 Gabapentin 100 mg PO DAILY 01/03/16 Loratadine [Claritin -] 10 mg PO DAILY 01/03/16 Quetiapine Fumarate [Seroquel -] 100 mg PO HS 01/03/16 Topiramate [Topamax] 50 mg PO DAILY 01/03/16 Acetaminophen/Caffeine/Butalb [Fioricet -] 1 tab PO Q6H PRN 05/10/18 Famotidine [Pepcid] 40 mg PO BID #14 tablet 05/10/18 Hydrochlorothiazide [Hctz -] 50 mg PO DAILY 05/10/18 Meclizine HCl [Antivert -] 12.5 mg PO ASDIR PRN 05/10/18 Montelukast Sodium [Singulair] 10 mg PO HS 05/10/18 Simvastatin [Zocor -] 10 mg PO HS 05/10/18 Tamoxifen Citrate 20 mg PO DAILY 05/10/18 traZODone HCL [Trazodone HCl] 50 mg PO HS 05/10/18 Mupirocin Cream [Bactroban 2% Cream -] 1 applic TP BID #1 tube 01/09/19 Sulfamethoxazole/Trimethoprim [Bactrim Ds -] 1 tab PO BID #14 tablet 01/09/19 Omeprazole 20 mg PO DAILY #30 tablet. 01/21/20 Anemia: Yes Asthma: Yes Cancer: No Cardiac Disorders: Yes (VALVE PROBLEM) CVA: No COPD: No CHF: No Dementia: No Diabetes: No GI Disorders: Yes (ULCER) Disorders: No HTN: Yes Hypercholesterolemia: No Liver Disease: No Psychiatric Problems: Yes (ANXIETY) Seizures: Yes ("HAS NOT HAD FOR MANY YRS") Thyroid Disease: No - Surgical History Abdominal Surgery: No Appendectomy: No Cardiac Surgery: No Cholecystectomy: No Lung Surgery: No Neurologic Surgery: No Orthopedic Surgery: Yes (CARPAL TUNNEL - RIGHT) - Psycho Social/Smoking Cessation Hx Smoking Status: No Smoking History: Never smoked Have you smoked in the past 12 months: No Number of Cigarettes Smoked Daily: 0 Hx Alcohol Use: No Drug/Substance Use Hx: No Substance Use Type: None Hx Substance Use Treatment: No Review of Systems - Review of Systems Able to Perform ROS?: Yes Comments:: GENERAL/CONSTITUTIONAL: No fever or chills. No weakness HEAD, EYES, EARS, NOSE AND THROAT: No change in vision. No change in hearing. No sore throat CARDIOVASCULAR: No chest pain or shortness of breath RESPIRATORY: Denies cough, hemoptysis GASTROINTESTINAL: +N/V; denies diarrhea/constipation GENITOURINARY: No dysuria, frequency, or change in urination. MUSCULOSKELETAL: No joint or muscle swelling or pain. No neck or back pain SKIN: No rash NEUROLOGIC: No headache, vertigo, loss of consciousness, or change in strength/sensation ENDOCRINE: No increased thirst. No abnormal weight change HEMATOLOGIC/LYMPHATIC: No anemia, easy bleeding, or history of blood clots ALLERGIC/IMMUNOLOGIC: No hives or skin allergy 01/27/20 01:45 Is the patient limited French proficient: No *Physical Exam - Vital Signs Last Vital Signs Temp Pulse Resp BP Pulse Ox 97.6 F 79 18 145/90 96 01/27/20 01:25 01/27/20 01:25 01/27/20 01:25 01/27/20 01:25 01/27/20 01:25 - Physical Exam GENERAL: Awake, alert, and oriented to person/place/time, in no acute distress HEAD: No signs of trauma, normocephalic, atraumatic EYES: PERRLA, EOMI, sclera anicteric, conjunctiva clear ENT: Hearing grossly normal, nares patent, oropharynx clear without exudates. Moist mucosa LUNGS: No distress, speaks in full sentences, clear to auscultation bilaterally HEART: Regular rate and rhythm, normal S1 and S2, no murmurs appreciated, peripheral pulses normal and equal bilaterally ABDOMEN: Soft, protuberant, epigastric TTP w/o rebound or guarding, normoactive bowel sounds EXTREMITIES: Normal inspection, Normal range of motion, no edema NEUROLOGICAL: Cranial nerves II through XII grossly intact. Normal speech, no focal sensorimotor deficits SKIN: Warm, Dry 01/27/20 01:46 ED Treatment Course - LABORATORY CBC & Chemistry Diagram: 01/27/20 02:15 01/27/20 02:15 Medical Decision Making - Medical Decision Making The pt is a 49F w/ a history of DM, HTN, PUD, GERD, Breast cancer (Tamoxifen), recurrent nephrolithiasis who presents for evaluation of epigastric pain with associated nausea and NBNB emesis. ED Course CMP, CBC, Lipase, Trop I ECG IVF, Reglan, Pepcid, Maalox, Viscous lidocaine 01/27/20 02:13 Labs still pending Pt states abd pain feels improved but has some nausea Will give Zofran 4mg IV once ECG pending 01/27/20 03:30 ECG w/ sinus bradycardia; HR 59; QTc 423; no axis deviation; no MARITZA 01/27/20 04:26 No leukocytosis No anemia Lytes unremarkable No DENICE LFTs wnl Trop I neg Lipase wnl 01/27/20 05:02 Pt w/ persistent epigastric pain Will give Morphine 4mg IV once Will obtain RUQ US 01/27/20 06:03 Pt signed out to Dr. Vergara, pending US/CT Discharge - Discharge Information Problems reviewed: Yes Clinical Impression/Diagnosis: Epigastric pain Condition: Stable - Follow up/Referral - Patient Discharge Instructions Patient Printed Discharge Instructions: DI for Gastroesophageal Reflux Disease (GERD) Additional Instructions: Take tylenol, pepcid, and maalox as directed on the label for your symptoms. Follow up with your GI doctor regarding your symptoms in the next 2-3 days. Continue your home medications as prescribed. Return to the nearest Emergency Department if you experience: - worsening or non resolving pain - blood in vomit or stool - fevers - Post Discharge Activity
[2020-01-27] MEDS ORDERED: LACTATED RINGERS SOLUTION 1000 ML INFUS.BAG IV ONE (01:55)
[2020-01-27] MEDS ORDERED: ACETAMINOPHEN 1000 MG/100 ML VIAL (NON FORMULARY) IVPB ONE (01:55)
[2020-01-27] MEDS ORDERED: FAMOTIDINE 20 MG/50 ML IVPB 20 MG/50 ML MG IVPB ONE ×2 (01:55→02:07)
[2020-01-27] MEDS ORDERED: LIDOCAINE VISCOUS 2% ORAL/TOP 20 ML UNIT-DOSE CUP MM ONE (01:55)
[2020-01-27] MEDS ORDERED: MAG HYDROX/AL HYDROX/SIMETH -MYLANTA- ORAL SUSPENSION PO ONE (01:55)
[2020-01-27] MEDS ORDERED: METOCLOPRAMIDE HCL INJECTION 10 MG/2 ML VIAL IVPB ONE (01:56)
[2020-01-27] MEDS ORDERED: ACETAMINOPHEN INJECTION 100 ML IVPB ONE (02:07)
[2020-01-27] MEDS ORDERED: METOCLOPRAMIDE HCL INJECTION 10 MG/2 ML VIAL ONE (02:07)
[2020-01-27] MEDS ORDERED: MAG HYDROX/AL HYDROX/SIMETH 30 ML UNIT-DOSE CUP ONE (02:07)
[2020-01-27] MEDS ORDERED: LIDOCAINE VISCOUS 2% ORAL/TOP 20 ML UNIT-DOSE CUP ONE (02:07)
--- NOTE | 2020-01-27 02:13 | PDOC ---
*Physical Exam - Vital Signs Last Vital Signs Temp Pulse Resp BP Pulse Ox 97.6 F 79 18 145/90 96 01/27/20 01:25 01/27/20 01:25 01/27/20 01:25 01/27/20 01:25 01/27/20 01:25 Heart Score/ECG Review - ECG Impressions Comment:: 01/27/20 06:08 HR 59, Incomplete RBB in V1, TWI in V3 - both changes consistent w/ECG dated 01/21/20 ED Treatment Course - LABORATORY CBC & Chemistry Diagram: 01/27/20 02:15 01/27/20 02:15 Medical Decision Making - Medical Decision Making 01/27/20 02:09 Patient seen as pre-attending with Dr. Coronado (PGY-2) and Dr. Guillen (Attending) 49 y/o female here with diffuse, burning abdominal pain and multiple episodes of NBNB emesis for the last 2 days. Evaluated by GI today with endoscopy planned for 02/14. As per EMR, h/o evaluation in our ED w/similar symptoms. Labs, Troponin unremarkable. D/c home. VS unremarkable Epigastric and LUQ TTP w/o peritoneal sign Presumptive treatment for PUD like picture, check labs, GI cocktail. Though lower clinical suspicion for abdominal pain as anginal equivalent, will obtain Troponin (x1) and EKG. Reassess. 01/27/20 04:18 Labs unremarkable including Troponin (-) x1 EKG w/o acute ischemic change as documented in EKG section of EMR 01/27/20 06:03 Continues to c/o epigastric pain s/p GI cocktail x2, analgesia w/Morphine. Will evaluate w/ RUQ U/S to r/o cholecystitis. Discharge - Discharge Information Problems reviewed: Yes Clinical Impression/Diagnosis: GERD (gastroesophageal reflux disease) Qualifiers: Esophagitis presence: esophagitis presence not specified Qualified Code(s): K21.9 - Gastro-esophageal reflux disease without esophagitis Condition: Stable - Follow up/Referral - Patient Discharge Instructions Patient Printed Discharge Instructions: DI for Gastroesophageal Reflux Disease (GERD) - Post Discharge Activity
--- NOTE | 2020-01-27 02:24 | PDOC ---
Attending Attestation - Resident Resident Name: Matt Coronado - ED Attending Attestation I have performed the following: I have examined & evaluated the patient, The case was reviewed & discussed with the resident, I agree w/resident's findings & plan, Exceptions are as noted - HPI HPI: 01/27/20 07:12 See resident HPI - Physicial Exam PE: 01/27/20 07:12 Agree with documented exam - Medical Decision Making 01/27/20 07:12 49F here with epigastric px a/w n/v, was seen a week ago for same symptoms, symptomatically improved after tx f/u labs symptomatic tx re-eval modest improvement in pain, still nauseous pain is persistent, still nauseous consider severe pud px, gastritis less likely but will w/ r/o acute unruly if US neg, and pain is persistent, would further evaluate with CT dispo per clinical course
[2020-01-27 03:09] LABS: BASO % 0.2 % (0-2.0); EOS % 3.5 % (0-4.5); HEMATOCRIT 38.9 % (32.4-45.2); LYMPH % 25.8 % (8-40); MCH 31.6 pg (25.7-33.7); MCHC 33.5 g/dl (32.0-36.0); MEAN CELL VOLUME 94.5 fl (80-96); MEAN PLT VOLUME 8.4 fl (7.5-11.1); MONO % 4.8 % (3.8-10.2); NEUT % 65.7 % (42.8-82.8); PLATELET COUNT 225 K/MM3 (134-434); RBC 4.11 M/mm3 (3.60-5.2); WHITE BLOOD COUNT 10.1 K/mm3 (4.0-10.0)
[2020-01-27] MEDS ORDERED: ONDANSETRON 4 MG/2 ML VIAL IVPUSH ONE (03:28)
[2020-01-27] MEDS ORDERED: ONDANSETRON 4 MG/2 ML VIAL ONE (03:52)
[2020-01-27 03:54] LABS: ALBUMIN 3.4 g/dl (3.4-5.0); ALK PHOS 66 U/L (45-117); ANION GAP 8 MMOL/L (8-16); BILIRUBIN,TOTAL 0.2 mg/dL (0.2-1); CALCIUM 8.9 mg/dL (8.5-10.1); CHLORIDE 107 mmol/L (98-107); CO2 26 mmol/L (21-32); CREATININE 0.8 mg/dL (0.55-1.3); GLUCOSE,RANDOM 133 mg/dL (74-106); LIPASE 168 U/L (73-393); POTASSIUM 4.4 mmol/L (3.5-5.1); SGOT/AST 40 U/L (15-37); SGPT/ALT 44 U/L (13-61); SODIUM 141 mmol/L (136-145); TOT PROT 7.2 g/dl (6.4-8.2)
[2020-01-27] MEDS ORDERED: PANTOPRAZOLE SODIUM 40 MG VIAL IVPUSH ONE ×2 (04:18→04:24)
[2020-01-27] MEDS ORDERED: PANTOPRAZOLE SODIUM 40 MG/100 ML BAG IVPB ONE (05:18)
[2020-01-27] MEDS ORDERED: morphine CARPU-JECT 4 MG/1 ML DISP.SYRIN IVPUSH ONE (06:03)
[2020-01-27] MEDS ORDERED: morphine SULFATE 4 MG/ML VIAL ONE (06:07)
--- NOTE | 2020-01-27 07:53 | PDOC ---
*Physical Exam - Vital Signs Last Vital Signs Temp Pulse Resp BP Pulse Ox 97.6 F 79 18 145/90 96 01/27/20 01:25 01/27/20 01:25 01/27/20 01:25 01/27/20 01:25 01/27/20 01:25 ED Treatment Course - LABORATORY CBC & Chemistry Diagram: 01/27/20 02:15 01/27/20 02:15 - ADDITIONAL ORDERS Additional order review: Laboratory Results 01/27/20 02:15 Sodium 141 Potassium 4.4 Chloride 107 Carbon Dioxide 26 Anion Gap 8 BUN 13.0 Creatinine 0.8 Est GFR (CKD-EPI)AfAm 99.63 Est GFR (CKD-EPI)NonAf 85.96 Random Glucose 133 H Calcium 8.9 Total Bilirubin 0.2 AST 40 H ALT 44 Alkaline Phosphatase 66 Troponin I < 0.02 Total Protein 7.2 Albumin 3.4 Lipase 168 01/27/20 02:15 RBC 4.11 MCV 94.5 MCHC 33.5 RDW 14.0 MPV 8.4 Neutrophils % 65.7 Lymphocytes % 25.8 Monocytes % 4.8 Eosinophils % 3.5 Basophils % 0.2 - Medications Given in the ED: ED Medications Discontinued Medications Generic Name Dose Route Start Last Admin Trade Name Freq PRN Reason Stop Dose Admin Acetaminophen 1,000 mg 01/27/20 01:55 01/27/20 02:34 Ofirmev Injection - IVPB 01/27/20 01:56 1,000 mg ONCE ONE Administration Al Hydroxide/Mg Hydroxide 30 ml 01/27/20 01:55 01/27/20 02:34 Mylanta Suspension - PO 01/27/20 01:56 30 ml ONCE ONE Administration Famotidine/Sodium Chloride 20 mg in 50 mls @ 100 mls/hr 01/27/20 01:55 01/27/20 02:34 Pepcid 20 Mg Premixed Ivpb - IVPB 01/27/20 02:24 100 mls/hr ONCE ONE Administration Lactated Ringer's 1,000 ml 01/27/20 01:55 01/27/20 02:34 Lactated Ringers Solution IV 01/27/20 01:56 1,000 ml ONCE ONE Administration Lidocaine HCl 20 ml 01/27/20 01:55 01/27/20 02:34 Xylocaine 2% Viscous Oral - MM 01/27/20 01:56 20 ml ONCE ONE Administration Metoclopramide HCl 10 mg 01/27/20 01:56 01/27/20 02:34 Reglan Injection - IVPB 01/27/20 01:57 10 mg ONCE ONE Administration Morphine Sulfate 4 mg 01/27/20 06:03 01/27/20 06:14 Morphine Injection - IVPUSH 01/27/20 06:04 4 mg ONCE ONE Administration Ondansetron HCl 4 mg 01/27/20 03:28 01/27/20 04:00 Zofran Injection IVPUSH 01/27/20 03:29 4 mg ONCE ONE Administration Pantoprazole Sodium 40 mg 01/27/20 04:24 01/27/20 05:19 Protonix Iv IVPUSH 01/27/20 04:25 40 mg ONCE ONE Administration Medical Decision Making - Medical Decision Making 01/27/20 07:53 signed out from PM team 49F PMH DM, HTN, PUD, GERD, Breast Ca (Tamoxifen), recurrent nephrolithiasis c/o epigastric pain, nausea, nbnb vomiting course: labs, ekg, GI cocktail, pain ctrl s/p morphine - US / CT - pain management - dispo Temp Pulse Resp BP Pulse Ox 97.6 F 79 18 145/90 96 01/27/20 01:25 01/27/20 01:25 01/27/20 01:25 01/27/20 01:25 01/27/20 01:25 01/27/20 08:04 pt s/p b/l tubal ligation; cleared for CT A/P 01/27/20 09:43 CT A/P Report: COMPARISON IMAGIN05/10/2018 FINDINGS: LUNG BASES:Minimal dependent atelectasis at the right base. The heart is normal size. LIVER: Hepatic steatosis portal and hepatic veins are patent. GALLBLADDER: Negative. BILIARY DUCTS: Negative. PANCREAS: Negative. SPLEEN: Negative. ADRENALS: Negative. KIDNEYS: Bilateral small renal cysts. Nephrolithiasis seen on prior imaging is normal blood present on the left. AORTA: Negative. LYMPH NODES: Negative. BOWEL: Hiatal hernia seen. The stomach is empty. Small bowel loops appear normal caliber. Unremarkable appendix. Distal small bowel loops are fluid-filled. Fluid is identified within the cecum and proximal ascending colon. No colonic wall thickening is identified. The transverse and descending colon are decompressed. No mesenteric stranding is identified. No free air/fluid identified. Fat-containing paraumbilical hernia with no stranding. PELVIS: The uterus appears bulky, likely fibroid. Correlate with ultrasound as clinically w arranted. The bladder is physiologically distended. OTHER: No aggressive bone lesions seen. IMPRESSION: Hepatic steatosis, stable as compared to prior imaging. Probable small renal cysts, correlate with ultrasound imaging. Fluid-filled distal small bowel loops and right colon which could represent gastroenteritis, correlate clinically. There is no evidence to suggest appendicitis. Bulky uterus, likely fibroid. This can be further assessed with ultrasound imaging. Additional comments noted above. 01/27/20 10:12 pt comfortable; pain is greatly reduced compared to presentation comfortable going home dc home w/ GI f/u Discharge - Discharge Information Problems reviewed: Yes Clinical Impression/Diagnosis: Epigastric pain Condition: Stable - Admission No - Follow up/Referral - Patient Discharge Instructions Patient Printed Discharge Instructions: DI for Gastroesophageal Reflux Disease (GERD) Additional Instructions: Take tylenol, pepcid, and maalox as directed on the label for your symptoms. Follow up with your GI doctor regarding your symptoms in the next 2-3 days. Continue your home medications as prescribed. Return to the nearest Emergency Department if you experience: - worsening or non resolving pain - blood in vomit or stool - fevers - Post Discharge Activity
[2020-01-27 10:44] VITALS: BP 126/74; PULSE 63; TEMP 98.2
--- NOTE | 2020-01-27 11:07 | EKG ---
Test Reason : Blood Pressure : / mmHG Vent. Rate : 059 BPM Atrial Rate : 059 BPM P-R Int : 142 ms QRS Dur : 102 ms QT Int : 428 ms P-R-T Axes : 042 -23 -12 degrees QTc Int : 423 ms SINUS BRADYCARDIA INCOMPLETE RIGHT BUNDLE BRANCH BLOCK NONSPECIFIC T WAVE ABNORMALITY ABNORMAL ECG WHEN COMPARED WITH ECG OF 21-JAN-2020 23:25, NONSPECIFIC T WAVE ABNORMALITY NOW EVIDENT IN LATERAL LEADS Confirmed by LOIS SNOW MD ([id number]) on 01/27/2020 11:06:39 AM Referred By: Confirmed By:LOIS SNOW MD
== END 2020-01-27 10:45 | disposition home or self-care (01) ==
LOC: JER 01:23
PROC: 3E033NZ Introduction of Analgesics, Hypnotics, Sedatives into Peripheral Vein, Percutaneous Approach (ICD-10-PCS; principal; 2020-01-27)
PROC: 3E0337Z Introduction of Electrolytic and Water Balance Substance into Peripheral Vein, Percutaneous Approach (ICD-10-PCS; 2020-01-27)
PROC: 3E033GC Introduction of Other Therapeutic Substance into Peripheral Vein, Percutaneous Approach (ICD-10-PCS; 2020-01-27)
DX: R10.13 Epigastric pain (principal); E11.9 Type 2 diabetes mellitus without complications; I10 Essential (primary) hypertension; K21.9 Gastro-esophageal reflux disease without esophagitis; Z85.3 Personal history of malignant neoplasm of breast; J45.909 Unspecified asthma, uncomplicated; F41.9 Anxiety disorder, unspecified; N20.0 Calculus of kidney
CPT/HCPCS: 36415; 74177-TC; 76705-TC; 80053; 83690; 84484; 85025; 93005; 93010; 96365; 96375; 96376; 99285-25; J0131; Q9967

== ENCOUNTER 2021-02-07 14:18 | Emergency (ER) | payer OTHER | END 2021-02-07 15:30 | disposition home or self-care (01) | LOC: JVIRT 14:18 | DX: Z11.52 Encounter for screening for COVID-19 (principal) | CPT/HCPCS: C9803; G2251-GT; U0003 ==

== ENCOUNTER 2021-05-22 14:49 | Emergency (ER) | payer OTHER ==
[2021-05-22 14:57] VITALS: BMI 39.6
[2021-05-22 16:33] VITALS: BP 123/80; PULSE 96; TEMP 97.3
[2021-05-22 16:44] LABS: BASO % 0.4 % (0-2.0); EOS % 1.9 % (0-4.5); HEMATOCRIT 37.4 % (32.4-45.2); HEMOGLOBIN 12.6 GM/dL (10.7-15.3); LYMPH % 34.9 % (8-40); MCH 31.6 pg (25.7-33.7); MCHC 33.6 g/dl (32.0-36.0); MEAN CELL VOLUME 93.9 fl (80-96); MEAN PLT VOLUME 7.9 fl (7.5-11.1); MONO % 6.5 % (3.8-10.2); NEUT % 56.3 % (42.8-82.8); PLATELET COUNT 229 10^3/uL (134-434); RBC 3.99 M/mm3 (3.60-5.2); RDW 14.7 % (11.6-15.6); WHITE BLOOD COUNT 7.5 K/mm3 (4.0-10.0)
[2021-05-22 17:09] LABS: CALCIUM 8.6 mg/dL (8.5-10.1)
[2021-05-22 17:10] LABS: ALBUMIN 3.7 g/dl (3.4-5.0); BLOOD UREA NITROGEN 11.9 mg/dL (7-18)
[2021-05-22 17:13] LABS: CREATININE 0.6 mg/dL (0.55-1.3)
[2021-05-22 17:15] LABS: BILIRUBIN,TOTAL 0.2 mg/dL (0.2-1); TOT PROT 7.3 g/dl (6.4-8.2)
[2021-05-22 17:18] LABS: EPI CELLS 17 /uL (0-25.1); HYALINE CASTS 0 /uL (0-3.1); URINE APPEARANCE CLOUDY; URINE BACTERIA 75 /uL (0-1359); URINE BILIRUBIN NEGATIVE (NEGATIVE); URINE COLOR YELLOW; URINE GLUCOSE (UA) NEGATIVE (NEGATIVE); URINE KETONE NEGATIVE (NEGATIVE); URINE LEUK ESTERASE NEGATIVE (NEGATIVE); URINE NITRITE NEGATIVE (NEGATIVE); URINE PROTEIN NEGATIVE (NEGATIVE); URINE RBC 2841 /uL (0-23.9); URINE WBC 6 /uL (0-25.8)
[2021-05-22 19:24] LABS: URINE CRYSTALS MANY /hpf
== END 2021-05-22 19:22 | disposition home or self-care (01) ==
LOC: JER 14:49
DX: N93.9 Abnormal uterine and vaginal bleeding, unspecified (principal)
CPT/HCPCS: 36415; 76830-TC; 80053; 81003; 85025; 87086; 99284-25

== ENCOUNTER 2021-06-24 04:39 | Day surgery (SDC) | payer OTHER ==
[2021-06-20 09:55] VITALS: BMI 41.0
[2021-06-24] MEDS ORDERED: PROPOFOL 20 ML ONE (13:53)
[2021-06-24] MEDS ORDERED: MIDAZOLAM HCL 2 MG/2 ML SINGLE DOSE VIAL ONE (13:53)
[2021-06-24] MEDS ORDERED: ceFAZolin SODIUM 1 GM VIAL IVPB ONE (17:47)
[2021-06-24] MEDS ORDERED: oxyCODONE HCL 5 MG TABLET PO PRN (18:28)
[2021-06-24] MEDS ORDERED: ONDANSETRON 4 MG/2 ML VIAL IVPUSH PRN (18:28)
[2021-06-24] MEDS ORDERED: LACTATED RINGERS SOLUTION 1,000 ML IV SCH (18:30)
[2021-06-24 19:21] VITALS: BP 124/74; PULSE 57; TEMP 97.1
== END 2021-06-24 19:35 | disposition home or self-care (01) ==
LOC: JASU-SURG 04:39
PROVIDERS: ATTEND Obstetrics & Gynecology
PROC: 0UDB7ZX Extraction of Endometrium, Via Natural or Artificial Opening, Diagnostic (ICD-10-PCS; principal; 2021-06-24 12:00)
PROC: 0UJD8ZZ Inspection of Uterus and Cervix, Via Natural or Artificial Opening Endoscopic (ICD-10-PCS; 2021-06-24 12:00)
DX: N95.0 Postmenopausal bleeding (principal); E66.9 Obesity, unspecified; E11.9 Type 2 diabetes mellitus without complications; I10 Essential (primary) hypertension
CPT/HCPCS: 82962; 86850; 86900; 86901; 88305-TC; 94760

== ENCOUNTER 2021-07-05 22:44 | Emergency (ER) | payer OTHER ==
[2021-07-05 23:00] VITALS: BP 103/70; PULSE 81; TEMP 97; BMI 41.0
[2021-07-06 00:59] LABS: BASO % 0.3 % (0-2.0); EOS % 1.4 % (0-4.5); HEMATOCRIT 38.4 % (32.4-45.2); LYMPH % 32.6 % (8-40); MCH 31.5 pg (25.7-33.7); MCHC 33.8 g/dl (32.0-36.0); MEAN CELL VOLUME 93.2 fl (80-96); MEAN PLT VOLUME 7.9 fl (7.5-11.1); MONO % 5.8 % (3.8-10.2); NEUT % 59.9 % (42.8-82.8); PLATELET COUNT 231 10^3/uL (134-434); RBC 4.12 M/mm3 (3.60-5.2); RDW 14.4 % (11.6-15.6); WHITE BLOOD COUNT 10.4 K/mm3 (4.0-10.0)
[2021-07-06 01:32] LABS: CALCIUM 9.2 mg/dL (8.5-10.1)
[2021-07-06 01:33] LABS: BLOOD UREA NITROGEN 12.7 mg/dL (7-18)
[2021-07-06 01:36] LABS: CREATININE 0.7 mg/dL (0.55-1.3)
== END 2021-07-06 02:03 | disposition home or self-care (01) ==
LOC: JER 22:44
DX: M79.603 Pain in arm, unspecified (principal); V89.2XXA Person injured in unspecified motor-vehicle accident, traffic, initial encounter
CPT/HCPCS: 36415; 80048; 85025; 99283-25

== ENCOUNTER 2022-03-11 03:53 | Day surgery (SDC) | payer OTHER ==
[2022-03-06 16:20] VITALS: BMI 42.0
[2022-03-11] MEDS ORDERED: ceFAZolin 2 GRAM PREMIX BAG IVPB ONE ×2 (09:53→10:16)
[2022-03-11] MEDS ORDERED: ceFAZolin SODIUM 1 GM VIAL ONE (10:10)
[2022-03-11] MEDS ORDERED: MIDAZOLAM HCL 2 MG/2 ML SINGLE DOSE VIAL ONE ×2 (10:10)
[2022-03-11 11:05] VITALS: PULSE 65; TEMP 96.8
[2022-03-11 12:36] VITALS: BP 129/86
== END 2022-03-11 12:15 | disposition home or self-care (01) ==
LOC: JASU-SURG 03:53
PROVIDERS: ATTEND Urology
PROC: 0TF3XZZ Fragmentation in Right Kidney Pelvis, External Approach (ICD-10-PCS; principal; 2022-03-11 10:06)
DX: N20.0 Calculus of kidney (principal)
CPT/HCPCS: 81025; 82962

== ENCOUNTER 2023-02-06 06:58 | Day surgery (SDC) | payer OTHER ==
[2023-01-28 12:03] VITALS: BMI 39.9
[2023-02-06] MEDS ORDERED: MIDAZOLAM HCL 2 MG/2 ML SINGLE DOSE VIAL ONE (08:14)
[2023-02-06] MEDS ORDERED: SUCCINYLCHOLINE CHLORIDE 200 MG/10 ML SYRINGE ONE (08:14)
[2023-02-06] MEDS ORDERED: PROPOFOL 20 ML ONE (08:14)
[2023-02-06] MEDS ORDERED: BUPIVACAINE HCL/PF 2.5 MG/ML - 30 ML VIAL IJ ONE (08:47)
[2023-02-06] MEDS ORDERED: EPINEPHrine 1:1,000 1,000 MCG/ML ML ONE (08:47)
[2023-02-06] MEDS ORDERED: ONDANSETRON 4 MG/2 ML VIAL ONE (10:08)
[2023-02-06] MEDS ORDERED: KETOROLAC TROMETHAMINE 30 MG/1 ML VIAL ONE (10:08)
[2023-02-06] MEDS ORDERED: ceFAZolin SODIUM 1 GM VIAL ONE (10:08)
[2023-02-06] MEDS ORDERED: DEXAMETHASONE SOD PHOSPHATE 4 MG/1 ML VIAL ONE (10:08)
[2023-02-06] MEDS ORDERED: ONDANSETRON 4 MG/2 ML VIAL IVPUSH PRN (10:28)
[2023-02-06] MEDS ORDERED: oxyCODONE HCL 5 MG TABLET PO PRN (10:28)
[2023-02-06] MEDS ORDERED: ACETAMINOPHEN 1000 MG/100 ML BAG IVPB ONE (10:29)
[2023-02-06] MEDS ORDERED: LACTATED RINGERS SOLUTION 1,000 ML IV SCH (10:30)
[2023-02-06 11:50] VITALS: RESP 18; TEMP 97.9
[2023-02-06 11:51] VITALS: BP 110/76; PULSE 76
== END 2023-02-06 12:11 | disposition home or self-care (01) ==
LOC: FASU 06:58
PROVIDERS: ATTEND Orthopaedic Surgery
PROC: 0SBD4ZZ Excision of Left Knee Joint, Percutaneous Endoscopic Approach (ICD-10-PCS; 2023-02-06)
PROC: 0SBD4ZZ Excision of Left Knee Joint, Percutaneous Endoscopic Approach (ICD-10-PCS; principal; 2023-02-06 09:56)
DX: S83.242A Other tear of medial meniscus, current injury, left knee, initial encounter (principal); S83.282A Other tear of lateral meniscus, current injury, left knee, initial encounter; S83.8X2A Sprain of other specified parts of left knee, initial encounter; M65.862 Other synovitis and tenosynovitis, left lower leg; X58.XXXA Exposure to other specified factors, initial encounter; Y93.9 Activity, unspecified; Y92.9 Unspecified place or not applicable
CPT/HCPCS: 81025; 82962; 94760

== ENCOUNTER 2025-08-16 10:59 | Inpatient (IN) | payer OTHER ==
[2025-08-16] MEDS ORDERED: ZOLPIDEM TARTRATE 5 MG TABLET PO PRN (13:57)
[2025-08-16] MEDS ORDERED: ACETAMINOPHEN 500 MG TABLET (FP) PO PRN (14:07)
[2025-08-16] MEDS ORDERED: VANCOMYCIN HCL 1,500 MG in DEXTROSE 5%-WATER - 250 ML IVPB SCH (14:15)
[2025-08-16 14:35] LABS: ABSOLUTE IMMATURE GRANULOCYTES 0.03 x10^3/uL (0.0-0.031); BASOPHILS # 0.03 x10^3/uL (0.01-0.08); EOSINOPHIL % 5.3 % (0.7-5.8); EOSINOPHILS # 0.34 x10^3/uL (0.04-0.36); MCHC 31.4 g/dl (32.2-35.5); MEAN CELL VOLUME 93.8 fl (79.4-94.8); MEAN PLT VOLUME 9.6 fl (9.4-12.3); MONOCYTE # 0.29 x10^3/uL (0.24-0.86); MONOCYTE % 4.5 % (4.7-12.5); RDW 14.3 % (12.3-16.6)
[2025-08-16] MEDS ORDERED: PIPERACILLIN/TAZOB 4.5 GM 4.5 GM/100 ML BAG IVPB ONE (14:36)
[2025-08-16 14:42] LABS: INR 0.98 (0.83-1.09); PROTHROMBIN TIME (PATIENT) 10.8 SEC (9.7-13.0)
[2025-08-16 14:45] LABS: ACTIVATED PTT 31.0 SECONDS (25.2-36.5)
[2025-08-16] MEDS: PIPERACILLIN/TAZOB 4.5 GM 4.5 GM in DEXTROSE 5%-WATER 100 ML IVPB SCH (14:49)
[2025-08-16] MEDS: CEFAZOLIN 2 GM in DEXTROSE 5%-WATER - 50 ML IVPB ONE (14:51)
[2025-08-16 14:56] LABS: GLUCOSE,RANDOM 163.0 mg/dL (74-106)
[2025-08-16 14:57] LABS: TOT PROT 7.3 g/dl (6.4-8.2)
[2025-08-16 14:58] LABS: CO2 22.0 mmol/L (21-32)
[2025-08-16 14:59] LABS: ALK PHOS 79.0 U/L (40-150)
[2025-08-16 15:02] LABS: CREATININE 0.74 mg/dL (0.55-1.3); SGOT/AST 30.0 U/L (5-34); SGPT/ALT 18.0 U/L (0-55)
[2025-08-16 15:29] VITALS: BMI 42.2
[2025-08-16 15:36] LABS: HCV DIAGNOSTIC IN-HOUSE W/RFLX NON-REACTIVE (NONREACTIVE); HIV INTERPRETATION NEGATIVE (NEGATIVE)
[2025-08-16] MEDS: VANCOMYCIN PREMIX 1.5 GM 1,500 MG/300 ML BAG IVPB SCH (15:50)
[2025-08-16] MEDS ORDERED: PIPERACILLIN/TAZOB 4.5 GM 4.5 GM in DEXTROSE 5%-WATER 100 ML IVPB SCH (18:00)
[2025-08-16] MEDS: INSULIN ASPART SLIDING SCALE (NOVOLOG) 1 VIAL SQ SCH (18:14)
[2025-08-16] MEDS: ATORVASTATIN CA 80 MG TABLET (FP) PO SCH (21:25)
[2025-08-17] MEDS ORDERED: PROMETHAZINE HCL 25 MG/1 ML VIAL IVPB PRN (13:00)
[2025-08-17] MEDS ORDERED: ONDANSETRON 4 MG/2 ML VIAL IVPUSH PRN ×2 (13:00→16:21)
[2025-08-17] MEDS ORDERED: DEXAMETHASONE SOD PHOSPHATE 4 MG/1 ML VIAL ONE (13:07)
[2025-08-17] MEDS ORDERED: MIDAZOLAM HCL 2 MG/2 ML SINGLE DOSE VIAL ONE (13:07)
[2025-08-17] MEDS ORDERED: PROPOFOL 40 ML ONE (13:07)
[2025-08-17] MEDS ORDERED: SEVOFLURANE 250 ML BTL ONE (13:11)
[2025-08-17] MEDS ORDERED: PIPERACILLIN/TAZOBACTAM 3.375 GM VIAL IVPB ONE (13:13)
[2025-08-17] MEDS ORDERED: ACETAMINOPHEN INJECTION 100 ML ONE (13:13)
[2025-08-17] MEDS: PIPERACILLIN/TAZOBACTAM 3.375 GM VIAL IVPB ONE ×2 (14:28)
[2025-08-17] MEDS ORDERED: ZOLPIDEM TARTRATE 5 MG TABLET PO PRN (16:21)
[2025-08-17] MEDS: INSULIN ASPART SLIDING SCALE (NOVOLOG) 1 VIAL SQ SCH (17:25)
[2025-08-17] MEDS: PIPERACILLIN/TAZOB 4.5 GM 4.5 GM in DEXTROSE 5%-WATER 100 ML IVPB SCH (17:52)
[2025-08-17] MEDS ORDERED: PIPERACILLIN/TAZOB 4.5 GM 4.5 GM in DEXTROSE 5%-WATER 100 ML IVPB SCH (18:00)
[2025-08-17] MEDS: LACTATED RINGERS SOLUTION 1,000 ML IV SCH (20:15)
[2025-08-17 21:54] VITALS: RESP 18
[2025-08-17] MEDS: ATORVASTATIN CA 80 MG TABLET (FP) PO SCH (21:54)
[2025-08-17] MEDS: QUEtiapine FUMARATE 100 MG TABLET (FP) PO SCH (21:54)
[2025-08-17] MEDS: ACETAMINOPHEN 500 MG TABLET (FP) PO PRN (22:02)
[2025-08-17] MEDS: ATORVASTATIN CA 80 MG TABLET (FP) PO ONE (22:37)
[2025-08-17] MEDS: QUEtiapine FUMARATE 100 MG TABLET (FP) PO ONE (23:03)
[2025-08-18] MEDS ORDERED: INSULIN ASPART SLIDING SCALE (NOVOLOG) 1 VIAL SQ SCH (00:02)
[2025-08-18] MEDS: INSULIN ASPART SLIDING SCALE (NOVOLOG) 1 VIAL SQ SCH (06:41)
[2025-08-18 08:07] VITALS: BP 142/77; PULSE 68; TEMP 97.7
[2025-08-18 09:13] LABS: ABSOLUTE IMMATURE GRANULOCYTES 0.03 x10^3/uL (0.0-0.031); BASOPHILS # 0.02 x10^3/uL (0.01-0.08); EOSINOPHIL % 0.1 % (0.7-5.8); EOSINOPHILS # 0.01 x10^3/uL (0.04-0.36); MCHC 32.0 g/dl (32.2-35.5); MEAN CELL VOLUME 94.7 fl (79.4-94.8); MEAN PLT VOLUME 9.6 fl (9.4-12.3); MONOCYTE # 0.53 x10^3/uL (0.24-0.86); MONOCYTE % 5.7 % (4.7-12.5); RDW 14.4 % (12.3-16.6)
[2025-08-18] MEDS: ENOXAPARIN NA (PORCINE) 40 MG/0.4 ML DISP.SYRIN SQ SCH (10:14)
[2025-08-18 11:42] LABS: GLUCOSE,RANDOM 154.0 mg/dL (74-106); TOT PROT 6.7 g/dl (6.4-8.2)
[2025-08-18 11:43] LABS: CO2 22.0 mmol/L (21-32)
[2025-08-18 11:45] LABS: ALK PHOS 73.0 U/L (40-150)
[2025-08-18 11:48] LABS: CREATININE 0.63 mg/dL (0.55-1.3); SGOT/AST 16.0 U/L (5-34); SGPT/ALT 16.0 U/L (0-55)
[2025-08-18] MEDS ORDERED: INSULIN ASPART SLIDING SCALE (NOVOLOG) 1 VIAL SQ ONE (12:02)
[2025-08-18] MEDS ORDERED: PIPERACILLIN/TAZOBACTAM 4.5 GM VIAL IVPB ONE (17:37)
== END 2025-08-18 18:45 | disposition home or self-care (01) | DRG 791 ==
LOC: JER 10:59 → JERBED 13:19 → J6S 15:06
PROVIDERS: ADMIT Internal Medicine; ATTEND Internal Medicine
PROC: 0W980ZZ Drainage of Chest Wall, Open Approach (ICD-10-PCS; 2025-08-17)
PROC: 0HPU0NZ Removal of Tissue Expander from Left Breast, Open Approach (ICD-10-PCS; principal; 2025-08-17 13:00)
PROC: 0JB60ZZ Excision of Chest Subcutaneous Tissue and Fascia, Open Approach (ICD-10-PCS; 2025-08-17 13:00)
DX: M96.843 Postprocedural seroma of a musculoskeletal structure following other procedure (principal); T85.79XA Infection and inflammatory reaction due to other internal prosthetic devices, implants and grafts, initial encounter; T81.31XA Disruption of external operation (surgical) wound, not elsewhere classified, initial encounter; I10 Essential (primary) hypertension; E11.9 Type 2 diabetes mellitus without complications; E78.5 Hyperlipidemia, unspecified; C50.919 Malignant neoplasm of unspecified site of unspecified female breast; F41.8 Other specified anxiety disorders; Y83.8 Other surgical procedures as the cause of abnormal reaction of the patient, or of later complication, without mention of misadventure at the time of the procedure
CPT/HCPCS: 36415; 71045-TC-FY; 80053; 82962; 83036; 83735; 84100; 85025; 85610; 85730; 86803; 86850; 86900; 86901; 87070; 87205; 87389; 88300-TC; 88304-TC; 93005; 93010; 94760; 99281-25; 99285-25